=== PATIENT | male | born 1980 | race Hispanic/Latino ===

== ENCOUNTER 2020-10-09 23:51 | Emergency (ER) | payer OTHER ==
[2020-10-10] MEDS ORDERED: HYDROCODONE/ACETAMINOPHEN 5/325 MG TAB ONE (00:26)
[2020-10-10] MEDS ORDERED: IBUPROFEN 600 MG TABLET ONE (00:26)
== END 2020-10-10 00:49 | disposition home or self-care (01) ==
LOC: EDH 23:51
DX: M70.21 Olecranon bursitis, right elbow (principal); Y93.89 Activity, other specified; Z72.0 Tobacco use
CPT/HCPCS: 73070